=== PATIENT | female | born 1995 | race Caucasian/White ===

== ENCOUNTER → 2017-09-14 | Outpatient (CLI) | payer BC, OTHER ==
[~2017-09-14] MED LIST: BCP; CIPR-344 PO; HYDR-4309 PO; PROM-110 PO
--- NOTE | 2017-09-14 11:34 | RADIOLOGY IMAGING REPORT ---
FACILITY: [facility] - [place] PATIENT NAME: Shilpa Loredo : 1995 MR: [id number] V: [id number] EXAM DATE: ORDERING PHYSICIAN: ELVIRA CAPPS TECHNOLOGIST: Location: [facility] [place] Patient: Shilpa Loredo : 1995 Visit/Account:[id number] Date of Sevice: 09/14/2017 GALLBLADDER HISTORY: Epigastric pain COMPARISON: None. FINDINGS: Gallbladder: Unremarkable; no stones or sludge. Liver: Negative. Common duct: Normal, 3.7 mm diameter. Pancreas: Partially obscured by bowel, visualized aspects unremarkable. Right kidney: Right kidney appears unremarkable measuring 9.4 cm in length Upper abdominal aorta and IVC: Patent. Ascites: None visualized. IMPRESSION: Unremarkable right upper quadrant ultrasound Report Dictated By: Kaylynn Begum MD at 09/14/2017 11:27 AM Report E-Signed By: Kaylynn Begum MD at 09/14/2017 11:30 AM WSN:[id number]
== END ==
LOC: US 10:33
PROVIDERS: ATTEND Surgery
DX: R10.13 Epigastric pain (principal)
CPT/HCPCS: 76705

== ENCOUNTER → 2018-11-30 | Outpatient (CLI) | payer BC, OTHER ==
[~2018-11-30] MED LIST changes: -HYDR-4309 PO; +HYDR-653 PO; +MEDR10TA57 PO; +NORE1TAB59 PO; +SULF-198 PO
== END ==
LOC: LAB 15:48
PROVIDERS: ATTEND Nurse Practitioner Primary Care
DX: N39.0 Urinary tract infection, site not specified (principal)
CPT/HCPCS: 87088